=== PATIENT | female | born 1955 | race Hispanic/Latino ===

== ENCOUNTER 2016-05-18 06:42 | Outpatient (CLI) | payer OTHER ==
[2016-05-18 07:47] LABS: #Basophils 0.1 thou/uL (0.0-0.2); #Eosinphils 0.5 thou/uL (0.0-0.7); #Lymphocytes 2.3 thou/uL (1.20-3.40); #Monocytes 0.9 thou/uL (0.11-0.59); #Neutrophils 3.8 thou/uL (1.40-6.50); %Basophils 1.1 % (0.0-1.0); %Eosinophils 6.4 % (0.0-10.0); %Monocytes 11.6 % (0.0-10.0); Hematocrit 44.5 % (36.0-47.0); Mean Platelet Volume 8.1 fL (7.4-10.4); Red Blood Cell (RBC) Count 4.47 mill/uL (4.20-5.40); White Blood Cell (WBC) Count 7.5 thou/uL (4.8-10.8)
[2016-05-18 08:25] LABS: ALT (SGPT) 20 U/L (0-55); AST (SGOT) 19 U/L (5-34); Alkaline Phosphatase 64 U/L (40-150); Anion Gap 13 mmol/L (10-20); BUN (Urea Nitrogen) 18 mg/dL (9.8-20.1); Bilirubin, Total 0.3 mg/dL (0.2-1.2); Calc. Creatinine Clearance 0 mL/min (70-130); Calcium 9.4 mg/dL (7.8-10.44); Carbon Dioxide 23 mmol/L (22-29); Chloride 108 mmol/L (98-107); Estimated GFR-MDRD 68; Globulin 2.7 g/dL (2.4-3.5); Protein, Total 6.8 g/dL (6.0-8.3)
== END 2016-05-18 06:43 | disposition home or self-care (01) ==
LOC: BURLAB 06:42
PROVIDERS: ATTEND Internal Medicine Rheumatology
DX: M06.061 Rheumatoid arthritis without rheumatoid factor, right knee (principal); Z79.899 Other long term (current) drug therapy
CPT/HCPCS: 36415; 80053; 85025; 85652; 86140

== ENCOUNTER 2016-08-03 06:30 | Outpatient (CLI) | payer OTHER ==
[2016-08-03 08:37] LABS: Cardiac Risk 4.1 (Less than 4.5)
[2016-08-03 08:56] LABS: Free T4 (Free Thyroxine) 1.16 ng/dL (0.70-1.48); Thyroid Stimulating Hormone 1.5345 uIU/mL (0.35-4.94)
== END 2016-08-03 06:31 | disposition home or self-care (01) ==
LOC: BURLAB 06:30
PROVIDERS: ATTEND Internal Medicine
DX: E78.5 Hyperlipidemia, unspecified (principal); E03.9 Hypothyroidism, unspecified; R79.89 Other specified abnormal findings of blood chemistry
CPT/HCPCS: 36415; 80061; 83036; 84439; 84443

== ENCOUNTER 2016-09-21 06:46 | Outpatient (CLI) | payer OTHER ==
[2016-09-21 07:18] LABS: Bilirubin Negative (Negative); Blood, Urine Negative (Negative); Clarity Clear (Clear); Glucose, Urine (Dipstick) Negative (Negative); Leukocyte Negative (Negative); Nitrite Negative (Negative); Protein, Urine (Dipstick) Negative (Neg-Trace); Urobilinogen 0.2 mg/dL (0.2-1.0)
[2016-09-21 07:29] LABS: Bacteria/HPF None Seen HPF (None Seen); RBC/HPF None Seen HPF (0-3); Squamous Epithelial 0-3 HPF (0-3); WBC/HPF None Seen HPF (0-3)
[2016-09-21 07:42] LABS: #Basophils 0.1 thou/uL (0.0-0.2); #Eosinphils 0.6 thou/uL (0.0-0.7); #Lymphocytes 2.3 thou/uL (1.20-3.40); #Monocytes 0.8 thou/uL (0.11-0.59); #Neutrophils 5.3 thou/uL (1.40-6.50); %Basophils 1.2 % (0.0-1.0); %Lymphocytes 25.1 % (21.0-51.0); %Neutrophils 57.8 % (42.0-75.0); Hemoglobin 14.1 g/dL (12.0-16.0); Mean Corpuscular HGB CONC 32.7 g/dL (32.0-36.0); Mean Corpuscular Hemoglobin 32.7 pg (27.0-31.0); Mean Corpuscular Volume 99.8 fl (81.0-99.0); Platelet Count 245 thou/uL (130-400); Red Blood Cell (RBC) Count 4.31 mill/uL (4.20-5.40); White Blood Cell (WBC) Count 9.1 thou/uL (4.8-10.8)
[2016-09-21 07:58] LABS: Hemoglobin A1c 5.1 % (4.0-6.0)
[2016-09-21 08:03] LABS: ALT (SGPT) 43 U/L (8-55); AST (SGOT) 33 U/L (5-34); Albumin 4.3 g/dL (3.5-5.0); Alkaline Phosphatase 67 U/L (40-150); Anion Gap 19 mmol/L (10-20); BUN (Urea Nitrogen) 17 mg/dL (9.8-20.1); Bilirubin, Total 0.6 mg/dL (0.2-1.2); Calc. Creatinine Clearance 0 mL/min (70-130); Calcium 9.8 mg/dL (7.8-10.44); Carbon Dioxide 21 mmol/L (22-29); Cardiac Risk 4.6 (Less than 4.5); Chloride 105 mmol/L (98-107); Cholesterol 237 mg/dl (< 200 Desired); Estimated GFR-MDRD 57; Globulin 2.9 g/dL (2.4-3.5); Glucose 103 mg/dL (70-105); HDL Cholesterol 52 mg/dL (>60 Neg Risk); LDL Cholesterol, Calculated 160 mg/dL; Protein, Total 7.2 g/dL (6.0-8.3); Sodium 141 mmol/L (136-145); Triglycerides 125 mg/dL (Less than 150)
[2016-09-21 08:25] LABS: Free T4 (Free Thyroxine) 1.29 ng/dL (0.70-1.48); Thyroid Stimulating Hormone 1.2444 uIU/mL (0.35-4.94); Vitamin D, 25 Hydroxy 78.3 ng/ml (> 30.0)
[2016-09-21 18:03] LABS: Iron 93 ug/dL (50-170)
[2016-09-21 18:17] LABS: Hep C IgG Ab Non-Reactive (NonReactive); Hep C Index 0.11 S/CO (0-0.79)
== END 2016-09-21 06:47 | disposition home or self-care (01) ==
LOC: BURLAB 06:46
PROVIDERS: ATTEND Internal Medicine
DX: Z00.00 Encounter for general adult medical examination without abnormal findings (principal)
CPT/HCPCS: 36415; 80053; 80061; 81001; 82306; 83036; 83540; 84439; 84443; 85025; 86803

== ENCOUNTER 2016-11-03 17:40 | Outpatient (CLI) | payer OTHER ==
[2016-11-03 18:01] LABS: #Basophils 0.1 thou/uL (0.0-0.2); #Eosinphils 0.3 thou/uL (0.0-0.7); #Lymphocytes 2.3 thou/uL (1.20-3.40); #Monocytes 1.1 thou/uL (0.11-0.59); %Basophils 0.8 % (0.0-1.0); %Eosinophils 2.7 % (0.0-10.0); %Lymphocytes 19.2 % (21.0-51.0); %Monocytes 9.2 % (0.0-10.0); %Neutrophils 68.1 % (42.0-75.0); Hemoglobin 13.8 g/dL (12.0-16.0); Mean Corpuscular HGB CONC 33.2 g/dL (32.0-36.0); Mean Corpuscular Hemoglobin 32.6 pg (27.0-31.0); Mean Corpuscular Volume 98.1 fl (81.0-99.0); Mean Platelet Volume 8.2 fL (7.4-10.4); Platelet Count 235 thou/uL (130-400); RBC Distribution Width 12.8 % (11.5-14.5); Red Blood Cell (RBC) Count 4.23 mill/uL (4.20-5.40); White Blood Cell (WBC) Count 11.8 thou/uL (4.8-10.8)
[2016-11-03 18:18] LABS: ALT (SGPT) 23 U/L (8-55); AST (SGOT) 21 U/L (5-34); Albumin 4.2 g/dL (3.5-5.0); Alkaline Phosphatase 65 U/L (40-150); Anion Gap 14 mmol/L (10-20); BUN (Urea Nitrogen) 19 mg/dL (9.8-20.1); Bilirubin, Total 0.4 mg/dL (0.2-1.2); Calc. Creatinine Clearance 0 mL/min (70-130); Calcium 9.7 mg/dL (7.8-10.44); Carbon Dioxide 23 mmol/L (22-29); Chloride 107 mmol/L (98-107); Estimated GFR-MDRD 72; Glucose 104 mg/dL (70-105); Potassium 3.6 mmol/L (3.5-5.1); Protein, Total 7.2 g/dL (6.0-8.3); Sodium 140 mmol/L (136-145)
[2016-11-04 16:01] LABS: CRP (Inflammatory) Less than 0.50 mg/dL (= or < 0.5)
== END 2016-11-03 17:41 | disposition home or self-care (01) ==
LOC: BURLAB 17:40
PROVIDERS: ATTEND Internal Medicine Rheumatology
DX: M06.09 Rheumatoid arthritis without rheumatoid factor, multiple sites (principal)
CPT/HCPCS: 36415; 80053; 85025; 85652; 86140

== ENCOUNTER 2020-04-20 05:13 | Inpatient (IN) | payer OTHER ==
[2020-04-20] MEDS ORDERED: Acetaminophen 500 MG TAB ONE (05:48)
[2020-04-20] MEDS ORDERED: Ondansetron PF 4 MG/2 ML Vial ONE (05:48)
[2020-04-20 06:23] LABS: ALT (SGPT) 20 U/L (8-55); AST (SGOT) 22 U/L (5-34); Albumin 3.8 g/dL (3.4-4.8); Alkaline Phosphatase 52 U/L (40-110); Anion Gap 14 mmol/L (10-20); BUN (Urea Nitrogen) 12 mg/dL (9.8-20.1); Bilirubin, Total 0.7 mg/dL (0.2-1.2); Calc. Creatinine Clearance 0 mL/min (70-130); Calcium 9.3 mg/dL (7.8-10.44); Carbon Dioxide 22 mmol/L (23-31); Chloride 107 mmol/L (98-107); Globulin 2.6 g/dL (2.4-3.5); Glucose 142 mg/dL (80-115); Potassium 3.1 mmol/L (3.5-5.1); Protein, Total 6.4 g/dL (6.0-8.3); Sodium 140 mmol/L (136-145)
[2020-04-20 06:35] LABS: Band 26 % (5-11); Hemoglobin 13.5 g/dL (12.0-16.0); Lymphocytes 6 % (21-51); MDiff Complete? YES; Mean Corpuscular HGB CONC 34.6 g/dL (32.0-36.0); Mean Corpuscular Hemoglobin 33.3 pg (27.0-31.0); Mean Corpuscular Volume 96.1 fL (78.0-98.0); Mean Platelet Volume 7.1 fL (7.4-10.4); Monocytes 5 % (0-10); Neutrophil 63 % (42-75); Platelet Count 195 thou/uL (130-400); Platelet Morphology Comment Appears Adequate; RBC Distribution Width 12.5 % (11.5-14.5); RBC Morphology Normal; Red Blood Cell (RBC) Count 4.05 mill/uL (4.20-5.40); Vacuoles SLIGHT; White Blood Cell (WBC) Count 12.1 thou/uL (4.8-10.8)
[2020-04-20] MEDS ORDERED: Sodium Chloride 0.9% 100 ML ONE (06:44)
[2020-04-20] MEDS ORDERED: Aspirin Chewable 81 MG TAB ONE (06:44)
[2020-04-20] MEDS ORDERED: cefTRIAXone\\ROCEPHIN 2 GM VIAL ONE (06:44)
[2020-04-20] MEDS ORDERED: Potassium Chloride 20 MEQ TAB ONE (06:44)
[2020-04-20 07:22] LABS: Bilirubin Negative (Negative); Blood, Urine Negative (Negative); Clarity Clear (Clear); Glucose, Urine (Dipstick) Negative (Negative); Ketone, Urine Negative (Negative); Leukocyte Negative (Negative); Nitrite Negative (Negative); Protein, Urine (Dipstick) Negative (Neg-Trace); Urobilinogen 0.2 mg/dL (Less than 2); pH, Urine 5.5 (5.0-9.0)
--- NOTE | 2020-04-20 07:32 | RAD ---
Chest one view HISTORY: Dyspnea. FINDINGS: Cardiac silhouette and pulmonary vasculature are unremarkable. Mediastinum is midline. Ill-defined parenchymal infiltrate with air bronchograms projects over the right posterior lung base. Left lung is clear. No evidence of pneumothorax. Small metallic densities projecting over the upper midline mediastinum favored to represent extrinsic artifact. IMPRESSION : Right lower lobe pneumonia.
[2020-04-20] MEDS ORDERED: Dexamethasone 4 mg/ml Vial ONE (07:38)
[2020-04-20] MEDS ORDERED: Albuterol 200 PUFF (6.7GM INHALER) ONE (07:38)
[2020-04-20] MEDS ORDERED: Azithromycin 500 MG VIAL ONE (07:38)
[2020-04-20 08:54] LABS: Lactic Acid 1.2 mmol/L (0.5-2.2)
[2020-04-20 09:15] LABS: SARS-CoV-2 NAA Rapid Test Not Detected (NotDetected)
[2020-04-20] MEDS ORDERED: Albuterol 200 PUFF (6.7GM INHALER) INH PRN (11:05)
[2020-04-20] MEDS ORDERED: Ondansetron ODT 4 MG TAB PO PRN (11:05)
[2020-04-20] MEDS ORDERED: Acetaminophen 325 MG TAB PO PRN (11:06)
[2020-04-20] MEDS ORDERED: Ondansetron PF 4 MG/2 ML Vial IVP PRN (11:06)
[2020-04-20] MEDS ORDERED: traMADol HCl 50 MG TAB PO PRN (12:13)
[2020-04-20] MEDS ORDERED: tiZANidine HCl 4 MG TAB PO PRN (12:19)
[2020-04-20] MEDS ORDERED: predniSONE 10 MG TAB PO PRN (12:23)
[2020-04-20] MEDS ORDERED: SUMATRIPTAN 5 MG EA NARE PRN (12:26)
[2020-04-20] MEDS ORDERED: Diclofenac Sodium [Voltaren] 100 GM Gel..Gram. TOP PRN (12:29)
[2020-04-20] MEDS ORDERED: ABATACEPT 250 MG SC SCH (12:30)
[2020-04-20] MEDS ORDERED: Fluticasone Propionate Nasal Spray 16 gm Bottle NASAL PRN (12:33)
[2020-04-20] MEDS ORDERED: Estradiol [Estrace 0.01% Vaginal Cream] 42.5 GM Tube VAG SCH (12:45)
[2020-04-20] MEDS: Albuterol Sulfate 2.5 mg/3 ml Neb NEB PRN ×2 (13:32→20:55)
[2020-04-20 13:40] VITALS: BMI 29.7
--- NOTE | 2020-04-20 15:36 | HP ---
CHIEF COMPLAINT: Shortness of breath. HISTORY OF PRESENT ILLNESS: This 64-year-old female with underlying history of asthma, and who is treated with immunosuppressive therapy based on her history of rheumatoid arthritis, presented to the [facility] Emergency Department early this morning with complaints of acute onset of dyspnea, abdominal cramping, nausea, loose stool, body aches, and fever; the patient reports the symptoms to have developed upon waking from sleep around 2:30 in the morning; she had been asymptomatic the day prior. In the emergency department, she was tested for COVID and influenza, which both returned negative. She did have a T-max of 100.2 while in the emergency room. Chest x-ray was obtained consistent with a right lower lobe pneumonia. Lab work revealed a mild leukocytosis and initially an elevated lactic acid level. Blood and urine cultures were obtained and the patient was subsequently started empirically on Rocephin and azithromycin. She was also provided Decadron and Proventil inhaler. The patient's potassium level was low at 3.1, and thus she received 40 mEq of potassium chloride as well. The patient was subsequently admitted for further care of her pneumonia. At the time of my evaluation, she does report to be feeling better overall, but does have residual fatigue and intermittent cough. Her appetite is suppressed overall, but she does report her voiding output to be at baseline. She is in no significant pain at present and has good insight into her reason for admission. PAST MEDICAL HISTORY: Includes hypertension, rheumatoid arthritis, osteoarthritis, asthma, and hypothyroidism. PAST SURGICAL HISTORY: x2, a tendon repair to the left ankle, right knee surgery, rotator cuff repair of the left shoulder, bilateral thumb surgery, gastric sleeve, and hysterectomy. SOCIAL HISTORY: She is a nonsmoker with no drug use. Occasional social alcohol use. FAMILY HISTORY: Noncontributory. HOME MEDICATIONS: Include: 1. Singulair 10 mg at bedtime. 2. Lisinopril 20 mg daily. 3. Albuterol sulfate inhaler 2 puffs q.6 hours p.r.n. 4. Orencia 250 mg IV once a month. 5. Calcium citrate 630 mg daily. 6. Estradiol 1 application vaginally q.7 days. 7. Diclofenac sodium 100 mg topically p.r.n. 8. Levothyroxine 75 mcg daily. 9. Leflunomide 20 mg daily. 10. Advair Diskus 250/50 one puff b.i.d. 11. Triamterene/hydrochlorothiazide 75-50 mg daily. 12. Sumatriptan nasal spray p.r.n. 13. Pantoprazole 40 mg daily. 14. Prednisone 5 mg daily as needed. 15. Nasacort Allergy one spray each nostril daily as needed. 16. Tizanidine 4 mg at bedtime p.r.n. 17. Sulfasalazine 1000 mg p.o. daily. 18. Tramadol 50 mg as needed. REVIEW OF SYSTEMS: GENERAL: The patient complains of fatigue and fever. EARS, NOSE, AND THROAT: Denies sore throat, nasal drainage, or congestion. CARDIOVASCULAR: Denies chest pain or palpitations. RESPIRATORY: Complains of cough and shortness of breath. GASTROINTESTINAL: Complains of nausea and loose stool. GENITOURINARY: Denies dysuria. MUSCULOSKELETAL: Complains of chronic joint pains. DERM: Denies rash. NEUROLOGIC: Denies headache. LABORATORY DATA: White blood cell count is 12.1, hemoglobin 13.5, hematocrit 38.9, platelets 195. Sodium 140, potassium 3.1, BUN is 12, creatinine 0.90 with a GFR of 63, glucose 142. Initial lactic acid 2.4. Upon repeat check, it is 1.2. AST 22, ALT 20. Troponin 0.010. BNP less than 10. Urine was clear with no leukocyte esterase or nitrites. COVID and influenza swabs are negative. IMAGING DATA: Chest x-ray shows a right lower lobe pneumonia. PHYSICAL EXAMINATION: VITAL SIGNS: Temperature is 99.1, pulse is 80, respiratory rate is 20, oxygen is 96% on room air, and blood pressure 111/64. GENERAL: The patient is alert, oriented, in no acute distress. She is tired-appearing. HEAD, EYES, EARS, NOSE, AND THROAT: She is normocephalic and atraumatic. Pupils are equal, round, and reactive to light. Extraocular muscles are intact bilaterally. Moist mucous membranes. NECK: Supple without lymphadenopathy. RESPIRATORY: The patient has scattered crackles, but most prominent to the right lower lung field. No respiratory distress. No wheezing. CARDIOVASCULAR: Regular rate and rhythm. Normal S1 and S2. No murmurs, rubs, or gallops. ABDOMEN: Soft and nontender to palpation. No masses. EXTREMITIES: No clubbing, cyanosis, or edema. DERM: No rashes. NEUROLOGIC: Nonfocal with cranial nerves 2 through 12 grossly intact. ASSESSMENT AND PLAN: 1. Right lower lobe pneumonia, community acquired. We will resume the patient on azithromycin and Rocephin IV. She is currently afebrile and will provide antipyretics as needed and will follow up the patient's blood and urine cultures. We will repeat the patient's CBC in the morning to reassess her leukocytosis. We will provide supplemental oxygen should her O2 levels drop below 92%. 2. Hypokalemia. The patient received potassium chloride 40 mEq in the emergency department. We will repeat her metabolic panel tomorrow and reassess her potassium level. 3. Asthma. The patient is stable on room air at this time. We will resume her Advair and albuterol inhaler. 4. Hypertension. The patient is hemodynamically stable. We will resume her usual blood pressure medication. 5. Rheumatoid arthritis. The patient is on chronic immunosuppressive therapy related to this. We will resume her low-dose 5 mg prednisone while here. 6. Hypothyroidism. We will resume the patient's levothyroxine. 7. Prophylaxis. We will provide Lovenox for deep venous thrombosis prophylaxis and continue the patient's pantoprazole for gastrointestinal prophylaxis. We will also provide Florastor for as a probiotic due to antibiotic treatment. 8. Code status is full. 9. Disposition. We will plan to discharge the patient home with improvement in her current condition hopefully after her cultures have finalized. Job ID: [id number] MTDD
[2020-04-20] MEDS: Mometasone/Formoterol 200/5 60 PUFF INH SCH (18:13)
[2020-04-20] MEDS: Montelukast Sodium 10 mg Tablet PO SCH (20:54)
[2020-04-20] MEDS: Enoxaparin Sodium 30 MG/0.3 ML SYRINGE SC SCH (20:55)
[2020-04-20] MEDS ORDERED: Calcium Carbonate 500 MG ChewTAB PO PRN (21:48)
[2020-04-21 04:39] LABS: ALT (SGPT) 23 U/L (8-55); AST (SGOT) 17 U/L (5-34); Albumin 3.3 g/dL (3.4-4.8); Alkaline Phosphatase 36 U/L (40-110); Anion Gap 12 mmol/L (10-20); BUN (Urea Nitrogen) 9 mg/dL (9.8-20.1); Bilirubin, Total 0.5 mg/dL (0.2-1.2); Calc. Creatinine Clearance 85 mL/min (70-130); Calcium 8.9 mg/dL (7.8-10.44); Carbon Dioxide 22 mmol/L (23-31); Chloride 111 mmol/L (98-107); Globulin 2.4 g/dL (2.4-3.5); Glucose 126 mg/dL (80-115); Potassium 3.7 mmol/L (3.5-5.1); Protein, Total 5.7 g/dL (6.0-8.3); Sodium 141 mmol/L (136-145)
[2020-04-21 04:44] LABS: #Monocytes 1.1 thou/uL (0.11-0.59); #Neutrophils 15.2 thou/uL (1.40-6.50); %Basophils 0.3 % (0.0-1.0); %Lymphocytes 5.9 % (21.0-51.0); %Monocytes 6.1 % (0.0-10.0); %Neutrophils 87.8 % (42.0-75.0); Mean Corpuscular Hemoglobin 33.1 pg (27.0-31.0); Mean Corpuscular Volume 97.2 fL (78.0-98.0); Mean Platelet Volume 7.3 fL (7.4-10.4); Platelet Count 180 thou/uL (130-400); RBC Distribution Width 12.9 % (11.5-14.5); Red Blood Cell (RBC) Count 3.34 mill/uL (4.20-5.40); White Blood Cell (WBC) Count 17.3 thou/uL (4.8-10.8)
[2020-04-21] MEDS ORDERED: Levothyroxine Sodium 50 MCG TAB PO SCH (06:00)
[2020-04-21] MEDS: Levothyroxine Sodium 25 MCG TAB PO SCH (06:01)
[2020-04-21] MEDS: Mometasone/Formoterol 200/5 60 PUFF INH SCH ×2 (06:02→08:36)
[2020-04-21] MEDS: cefTRIAXone\\ROCEPHIN 1 GM in Sodium Chloride 0.9% 100 ML IVPB SCH (06:12)
[2020-04-21] MEDS ORDERED: Azithromycin 500 MG in Sodium Chloride 0.9% 250 ML 250 ML IVPB SCH (08:00)
[2020-04-21] MEDS: Leflunomide 10 mg Tablet PO SCH (08:37)
[2020-04-21] MEDS: Multivit, Therapeutic 1 TAB PO SCH (08:38)
[2020-04-21] MEDS: Potassium Chloride 10 MEQ TAB PO SCH (08:38)
[2020-04-21] MEDS: Triamterene/Hydrochlorothiazide 37.5 mg/25 mg Tablet PO SCH (08:38)
[2020-04-21] MEDS: sulfaSALAzine 500 MG TAB PO SCH (08:38)
[2020-04-21] MEDS: Saccharomyces boulardii 250 MG CAP PO SCH (08:39)
[2020-04-21] MEDS: predniSONE 10 MG TAB PO SCH (08:39)
[2020-04-21] MEDS: Lisinopril 20 MG TAB PO SCH (08:40)
[2020-04-21] MEDS ORDERED: Calcium Citrate 950 MG TAB PO SCH (09:00)
[2020-04-21] MEDS: Montelukast Sodium 10 mg Tablet PO SCH (20:53)
[2020-04-21] MEDS: Enoxaparin Sodium 30 MG/0.3 ML SYRINGE SC SCH (20:53)
[2020-04-21] MEDS: Azithromycin 500 MG in Sodium Chloride 0.9% 250 ML 250 ML IVPB SCH (21:57)
[2020-04-22] MEDS: Levothyroxine Sodium 25 MCG TAB PO SCH (06:04)
[2020-04-22] MEDS: Mometasone/Formoterol 200/5 60 PUFF INH SCH ×2 (06:05→18:15)
[2020-04-22] MEDS: cefTRIAXone\\ROCEPHIN 1 GM in Sodium Chloride 0.9% 100 ML IVPB SCH (06:06)
[2020-04-22 06:22] LABS: #Basophils 0.1 thou/uL (0.0-0.2); #Eosinphils 0.1 thou/uL (0.0-0.7); #Lymphocytes 2.5 thou/uL (1.20-3.40); #Monocytes 0.6 thou/uL (0.11-0.59); #Neutrophils 9.7 thou/uL (1.40-6.50); %Basophils 0.5 % (0.0-1.0); %Eosinophils 0.6 % (0.0-10.0); %Lymphocytes 19.3 % (21.0-51.0); %Monocytes 4.9 % (0.0-10.0); %Neutrophils 74.7 % (42.0-75.0); Hemoglobin 11.1 g/dL (12.0-16.0); Mean Corpuscular HGB CONC 32.8 g/dL (32.0-36.0); Mean Corpuscular Hemoglobin 32.8 pg (27.0-31.0); Mean Corpuscular Volume 99.9 fL (78.0-98.0); Platelet Count 199 thou/uL (130-400); RBC Distribution Width 13.3 % (11.5-14.5); Red Blood Cell (RBC) Count 3.39 mill/uL (4.20-5.40)
[2020-04-22 06:25] LABS: Anion Gap 13 mmol/L (10-20); BUN (Urea Nitrogen) 10 mg/dL (9.8-20.1); Calc. Creatinine Clearance 82 mL/min (70-130); Calcium 9.4 mg/dL (7.8-10.44); Carbon Dioxide 24 mmol/L (23-31); Chloride 111 mmol/L (98-107); Glucose 88 mg/dL (80-115); Sodium 144 mmol/L (136-145)
--- NOTE | 2020-04-22 07:07 | RAD ---
CHEST 2 VIEWS: Date: 04/22/2020 Comparison made with the 04/20/2020 study. The right lower lobe pneumonia is markedly improved. There is a minor residual at the moment. The lef t lung remains clear. There are no large effusions. The heart size is normal. IMPRESSION: Right lower lobe pneumonia, improving. POS: HOME
[2020-04-22] MEDS: Triamterene/Hydrochlorothiazide 37.5 mg/25 mg Tablet PO SCH (08:54)
[2020-04-22] MEDS: Leflunomide 10 mg Tablet PO SCH (08:55)
[2020-04-22] MEDS: Multivit, Therapeutic 1 TAB PO SCH (08:55)
[2020-04-22] MEDS: Potassium Chloride 10 MEQ TAB PO SCH (08:55)
[2020-04-22] MEDS: sulfaSALAzine 500 MG TAB PO SCH (08:55)
[2020-04-22] MEDS: Saccharomyces boulardii 250 MG CAP PO SCH (08:56)
[2020-04-22] MEDS: predniSONE 10 MG TAB PO SCH (08:56)
[2020-04-22] MEDS: Lisinopril 20 MG TAB PO SCH (08:59)
[2020-04-22] MEDS ORDERED: Calcium Citrate 950 MG TAB PO SCH (09:00)
[2020-04-22] MEDS ORDERED: CALCIUM CITRATE PO SCH (11:15)
[2020-04-22] MEDS ORDERED: VIT D PO SCH (11:15)
[2020-04-22 17:25] VITALS: TEMP 98
[2020-04-22] MEDS ORDERED: Estradiol [Estrace 0.01% Vaginal Cream] 42.5 GM Tube VAG SCH (21:00)
[2020-04-22] MEDS: Enoxaparin Sodium 30 MG/0.3 ML SYRINGE SC SCH (21:23)
[2020-04-22] MEDS: Montelukast Sodium 10 mg Tablet PO SCH (21:23)
[2020-04-22] MEDS: Azithromycin 500 MG in Sodium Chloride 0.9% 250 ML 250 ML IVPB SCH (21:24)
[2020-04-23 05:01] LABS: #Basophils 0.1 thou/uL (0.0-0.2); #Eosinphils 0.2 thou/uL (0.0-0.7); #Lymphocytes 2.4 thou/uL (1.20-3.40); #Monocytes 0.6 thou/uL (0.11-0.59); #Neutrophils 5.6 thou/uL (1.40-6.50); %Basophils 0.9 % (0.0-1.0); %Eosinophils 2.4 % (0.0-10.0); %Lymphocytes 27.2 % (21.0-51.0); %Monocytes 6.4 % (0.0-10.0); Hemoglobin 12.6 g/dL (12.0-16.0); Mean Corpuscular HGB CONC 32.2 g/dL (32.0-36.0); Mean Corpuscular Hemoglobin 32.3 pg (27.0-31.0); Mean Platelet Volume 7.2 fL (7.4-10.4); Platelet Count 231 thou/uL (130-400); RBC Distribution Width 13.1 % (11.5-14.5); Red Blood Cell (RBC) Count 3.91 mill/uL (4.20-5.40); White Blood Cell (WBC) Count 8.9 thou/uL (4.8-10.8)
[2020-04-23 05:18] LABS: Anion Gap 14 mmol/L (10-20); BUN (Urea Nitrogen) 10 mg/dL (9.8-20.1); Calc. Creatinine Clearance 80 mL/min (70-130); Calcium 9.3 mg/dL (7.8-10.44); Carbon Dioxide 26 mmol/L (23-31); Chloride 107 mmol/L (98-107); Glucose 89 mg/dL (80-115); Sodium 143 mmol/L (136-145)
[2020-04-23] MEDS: Levothyroxine Sodium 25 MCG TAB PO SCH (06:32)
[2020-04-23] MEDS: cefTRIAXone\\ROCEPHIN 1 GM in Sodium Chloride 0.9% 100 ML IVPB SCH (06:33)
--- NOTE | 2020-04-23 07:00 | DIS ---
DATE OF ADMISSION: 04/20/2020 DATE OF DISCHARGE: 04/23/2020 ADMISSION DIAGNOSES: 1. Right lower lobe pneumonia, community acquired. 2. Hypokalemia. SECONDARY DIAGNOSES: 1. Asthma. 2. Hypertension. 3. Rheumatoid arthritis. 4. Hypothyroidism. PROCEDURES: 1. On 04/20/2020, chest x-ray shows right lower lobe pneumonia. 2. On 04/22/2020, shows right lower lobe pneumonia, improving. HOSPITAL COURSE: 64-year-old female with underlying history of asthma and rheumatoid arthritis for which she is on chronic immunosuppressive therapy, who presented acutely to the [facility] Emergency Department with complaints of fever, body aches, mild upper respiratory symptoms with shortness of breath, and loose stools that awoke her from sleep overnight. She was promptly tested for COVID and influenza, which both were negative. Her chest x-ray confirmed right lower lobe pneumonia, and lab work revealed leukocytosis with left shift; the patient initially had an elevated lactic acid level as well. Blood and urine cultures were obtained, and she was started empirically on IV azithromycin and Rocephin. In addition to this, the patient's potassium was low at 3.1 and was effectively repleted. She was subsequently admitted for further treatment of her pneumonia. The patient's labs were trended during her stay. Her potassium remains within normal limits via supplementation. Her leukocytosis resolved by day of discharge. Her blood and urine cultures are returned to be negative beyond 48 hours. She has remained afebrile and reports her respiratory status to be back near her baseline at this time. She is amenable to discharge home to complete a course of oral antibiotics and reports to be feeling much better than upon arrival. DISPOSITION: The patient will discharge home and has been advised to follow up with her primary care provider, Dr. Rondon in 1 week. DISCHARGE MEDICATIONS: There are 3 new medications which include: 1. Potassium chloride 10 mEq once daily. 2. Cephalexin 500 mg p.o. b.i.d. x3 days. 3. Azithromycin 250 mg p.o. daily x2 days. The patient has been advised to withhold her immunosuppressive medications until antibiotics have been completed, and she is completely asymptomatic. All of her usual other medications shall be resumed. Total time spent in discharge of this patient greater than 30 minutes. Job ID: [id number]
[2020-04-23] MEDS: Mometasone/Formoterol 200/5 60 PUFF INH SCH (08:25)
[2020-04-23] MEDS: Leflunomide 10 mg Tablet PO SCH (08:27)
[2020-04-23] MEDS: Triamterene/Hydrochlorothiazide 37.5 mg/25 mg Tablet PO SCH (08:29)
[2020-04-23] MEDS: Potassium Chloride 10 MEQ TAB PO SCH (08:30)
[2020-04-23] MEDS: Lisinopril 20 MG TAB PO SCH (08:30)
[2020-04-23] MEDS: Saccharomyces boulardii 250 MG CAP PO SCH (08:30)
[2020-04-23] MEDS: Multivit, Therapeutic 1 TAB PO SCH (08:30)
[2020-04-23] MEDS: predniSONE 10 MG TAB PO SCH (08:31)
[2020-04-23 08:39] VITALS: BP 133/76
[2020-04-23] MEDS ORDERED: CALCIUM CITRATE PO SCH (09:00)
[2020-04-23] MEDS ORDERED: VIT D PO SCH (09:00)
[2020-05-05] MEDS ORDERED: ABATACEPT 250 MG SC SCH (09:00)
== END 2020-04-23 10:48 | disposition home or self-care (01) | DRG 195 ==
LOC: BURERS 05:13 → BURMED 07:38
PROVIDERS: ADMIT Family Medicine; ATTEND Family Medicine
DX: J18.9 Pneumonia, unspecified organism (principal); E03.9 Hypothyroidism, unspecified; E87.6 Hypokalemia; M06.9 Rheumatoid arthritis, unspecified; M19.90 Unspecified osteoarthritis, unspecified site; I10 Essential (primary) hypertension; J45.909 Unspecified asthma, uncomplicated; Z90.710 Acquired absence of both cervix and uterus; Z98.84 Bariatric surgery status; Z98.890 Other specified postprocedural states; Z88.1 Allergy status to other antibiotic agents; Z88.0 Allergy status to penicillin; Z88.8 Allergy status to other drugs, medicaments and biological substances; Z79.51 Long term (current) use of inhaled steroids; Z79.899 Other long term (current) drug therapy; Z79.890 Hormone replacement therapy; Z20.828 Contact with and (suspected) exposure to other viral communicable diseases
CPT/HCPCS: 0240U; 36415; 71045; 71046; 80048; 80053; 81003; 83605; 83880; 84484; 85025; 87040; 87086; 93005; 94640; 94664; 96365; 96367; 96375; J0456; J0696; J1100; J1650; J2405; J3490; J7050; J7512; J7611

== ENCOUNTER 2020-05-09 03:22 | Emergency (ER) | payer OTHER ==
[2020-05-09 03:55] LABS: Bilirubin Negative (Negative); Blood, Urine Negative (Negative); Clarity Clear (Clear); Glucose, Urine (Dipstick) Negative (Negative); Ketone, Urine Negative (Negative); Leukocyte Negative (Negative); Nitrite Negative (Negative); Protein, Urine (Dipstick) Negative (Neg-Trace); Specific Gravity, Urine 1.015 (1.005-1.030); Urobilinogen 0.2 mg/dL (Less than 2); pH, Urine 7.5 (5.0-9.0)
[2020-05-09] MEDS ORDERED: Morphine 4 MG/ML VIAL ONE ×3 (04:01→04:52)
[2020-05-09 04:04] LABS: #Basophils 0.1 thou/uL (0.0-0.2); #Eosinphils 0.4 thou/uL (0.0-0.7); #Lymphocytes 2.4 thou/uL (1.20-3.40); #Monocytes 0.7 thou/uL (0.11-0.59); %Basophils 1.1 % (0.0-1.0); %Eosinophils 6.5 % (0.0-10.0); %Monocytes 10.4 % (0.0-10.0); Hemoglobin 13.3 g/dL (12.0-16.0); Mean Corpuscular HGB CONC 32.1 g/dL (32.0-36.0); Mean Corpuscular Volume 99.7 fL (78.0-98.0); Mean Platelet Volume 7.2 fL (7.4-10.4); Platelet Count 224 thou/uL (130-400); RBC Distribution Width 12.6 % (11.5-14.5); Red Blood Cell (RBC) Count 4.15 mill/uL (4.20-5.40); White Blood Cell (WBC) Count 6.6 thou/uL (4.8-10.8)
[2020-05-09] MEDS ORDERED: Ondansetron PF 4 MG/2 ML Vial ONE (04:10)
[2020-05-09 04:15] LABS: ALT (SGPT) 15 U/L (8-55); AST (SGOT) 17 U/L (5-34); Albumin 4.1 g/dL (3.4-4.8); Alkaline Phosphatase 74 U/L (40-110); Anion Gap 16 mmol/L (10-20); BUN (Urea Nitrogen) 14 mg/dL (9.8-20.1); Bilirubin, Total 0.2 mg/dL (0.2-1.2); Calc. Creatinine Clearance 0 mL/min (70-130); Calcium 9.3 mg/dL (7.8-10.44); Carbon Dioxide 25 mmol/L (23-31); Chloride 105 mmol/L (98-107); Globulin 2.8 g/dL (2.4-3.5); Glucose 110 mg/dL (80-115); Lipase 43 U/L (8-78); Potassium 3.6 mmol/L (3.5-5.1); Protein, Total 6.9 g/dL (6.0-8.3); Sodium 142 mmol/L (136-145)
--- NOTE | 2020-05-09 10:01 | CT ---
PRELIMINARY REPORT/[facility]/EMERGENCY AFTER HOURS PROCEDURE: Focal groundglass opacity within the right lower lobe measuring 1.0 cm which is nonspecific but focal infectious or inflammatory process cannot be excluded. According to the 2017 Fleischner criteria, CT at 6-12 months to confirm persistence, then CT every 2 years until 5 years is recommended. Addendum electronically signed by Benita Boles MD on May 09, 2020 4:41:10 AM [employer] EXAM: CT Abdomen and Pelvis Without Intravenous Contrast CLINICAL HISTORY: LT FLANK PAIN X4DAYS, PT STATES SHE HAS A HX OF KIDNEY STONES, ER PT TECHNIQUE: Axial computed tomography images of the abdomen and pelvis without intravenous contrast. CONTRAST: None. COMPARISON: None provided. FINDINGS: LUNG BASES: Focal groundglass opacity within the right lower lobe measuring 1.0 cm which is nonspecif ic. LIVER: Unremarkable. GALLBLADDER AND BILE DUCTS: Unremarkable. No calcified stone. No ductal dilation. PANCREAS: Unremarkable. SPLEEN: Unremarkable. ADRENAL GLANDS: Unremarkable. KIDNEYS, URETERS, AND BLADDER: Minimal bilateral perinephric fat stranding which is nonspecific. No nephrolithiasis or hydronephrosis. STOMACH AND BOWEL: Status post gastric surgery. Colonic diverticulosis without evidence of diverticul itis. No bowel obstruction. APPENDIX: Normal appendix. PERITONEUM: No free fluid. No free air. LYMPH NODES: No lymphadenopathy. REPRODUCTIVE: Status post hysterectomy. VASCULATURE: No aortic aneurysm. ABDOMINAL WALL AND SOFT TISSUES: Unremarkable. BONES: Mild degenerative changes of the spine. IMPRESSION: Minimal bilateral perinephric fat stranding which is nonspecific. No nephrolithiasis or hydronephrosis. Status post gastric surgery. Colonic diverticulosis without evidence of diverticuli tis. No bowel obstruction. ELECTRONICALLY SIGNED BY: Benita Boles MD May 09, 2020 4:21:27 AM [employer] FINAL REPORT CT ABDOMEN AND PELVIS WITHOUT CONTRAST: DATE: 05/09/2020. HISTORY: A noncontrast CT was done for evaluation of bilateral flank pain with nausea. There is a history of renal stones. COMPARISON: Comparison is made with the prior CT exam of 09/22/2009. FINDINGS: The lung bases are generally clear. There is a very small 1 cm ground-glass density in the right low er lobe on slice 6 that is nonspecific. This could be due to infection, new or old, neoplasm, or oth er benign process. General recommendations would be to do a followup CT in 6-12 months. I do not se e it on the prior CT, but that prior exam did not scan up quite the side. The liver, spleen, pancreas, adrenal glands, and abdominal aorta appear normal within the limitations of a noncontrast study. 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 Previously, a tiny calculus was s een in its lower pole, but not today. There is no hydronephrosis in either kidney. Both ureters are normal in size. It is difficult to accurately assess the ureters for tiny calculi because this evan ent has numerous phleboliths along the general course of each ureter. Given no hydronephrosis and no predominance of pain on one side versus the other, all of the calcifications I see are more likely p hleboliths than ureteral calculi. There is a moderate amount of fecal material in the colon. There is no sign of obstruction or inflam matory change. Diverticulosis without diverticulitis is seen. There is no free air or free fluid. P rior gastric surgery is suggested. CT of the pelvis shows no pelvic masses, fluid collections, or inflammatory changes. IMPRESSION: 1. No definite renal or ureteral calculi. See proviso above about phleboliths. 2. Mild constipation. 3. A 1 cm ground-glass density in the right lower lobe. Consider followup within 1 year. See above . Report in agreement with preliminary reading by [facility]. POS: HOME
== END 2020-05-09 05:02 | disposition home or self-care (01) ==
LOC: BURERS 03:22
DX: R10.9 Unspecified abdominal pain (principal); Z79.899 Other long term (current) drug therapy; Z79.52 Long term (current) use of systemic steroids; I10 Essential (primary) hypertension; M06.9 Rheumatoid arthritis, unspecified; M19.90 Unspecified osteoarthritis, unspecified site; J45.909 Unspecified asthma, uncomplicated; E03.9 Hypothyroidism, unspecified
CPT/HCPCS: 74176; 80053; 81003; 83690; 85025; 96374; 96375; 96376; J2270; J2405

== ENCOUNTER 2022-09-23 16:35 | Emergency (ER) | payer MEDICARE, OTHER ==
[2022-09-23] MEDS ORDERED: Morphine 4 MG/ML VIAL ONE (16:49)
[2022-09-23] MEDS ORDERED: methylPREDNISolone Sod Succ/PF 125 MG/2 ML VIAL ONE (16:49)
== END 2022-09-23 17:28 | disposition home or self-care (01) ==
LOC: BURERS 16:35
DX: M54.16 Radiculopathy, lumbar region (principal); I10 Essential (primary) hypertension; J45.909 Unspecified asthma, uncomplicated; E03.9 Hypothyroidism, unspecified
CPT/HCPCS: 96372; 99283; J2270; J2930

== ENCOUNTER 2022-12-19 09:12 | Outpatient (CLI) | payer MEDICARE ==
[2022-12-19 09:34] LABS: Bilirubin Small (Negative); Blood, Urine Negative (Negative); Clarity Clear (Clear); Glucose, Urine (Dipstick) Negative (Negative); Ketone, Urine Negative (Negative); Leukocyte Negative (Negative); Nitrite Negative (Negative); Protein, Urine (Dipstick) Trace mg/dL (Neg-Trace); Specific Gravity, Urine 1.025 (1.005-1.030); Urobilinogen 0.2 mg/dL (Less than 2); pH, Urine 5.5 (5.0-9.0)
[2022-12-19 09:41] LABS: Mucous/LPF 1+ LPF (<2+); RBC/HPF None Seen HPF (0-3); Squamous Epithelial 0-3 HPF (0-3); WBC/HPF None Seen HPF (0-3)
[2022-12-19 09:42] LABS: Bacteria/HPF Rare-Few HPF (None Seen)
[2022-12-19 11:55] LABS: #Eosinphils 0.3 thou/uL (0.0-0.7); #Lymphocytes 1.4 thou/uL (1.20-3.40); #Monocytes 0.4 thou/uL (0.11-0.59); #Neutrophils 2.6 thou/uL (1.40-6.50); %Basophils 0.6 % (0.0-1.0); %Eosinophils 6.2 % (0.0-10.0); %Lymphocytes 28.9 % (21.0-51.0); %Monocytes 8.8 % (0.0-10.0); %Neutrophils 55.5 % (42.0-75.0); Hematocrit 40.4 % (36.0-47.0); Hemoglobin 12.9 g/dL (12.0-16.0); Mean Corpuscular HGB CONC 31.9 g/dL (32.0-36.0); Mean Corpuscular Hemoglobin 30.5 pg (27.0-31.0); Mean Corpuscular Volume 95.6 fl (78.0-98.0); Mean Platelet Volume 6.5 fL (7.4-10.4); Platelet Count 238 10x3/uL (130-400); RBC Distribution Width 13.2 % (11.5-14.5); Red Blood Cell (RBC) Count 4.23 mill/uL (4.20-5.40); White Blood Cell (WBC) Count 4.7 10x3/uL (4.8-10.8)
[2022-12-19 12:16] LABS: Hemoglobin A1c 4.9 % (4.0-6.0)
[2022-12-19 12:44] LABS: Free T4 (Free Thyroxine) 1.21 ng/dL (0.70-1.48)
[2022-12-19 13:57] LABS: ALT (SGPT) 18 U/L (8-55); AST (SGOT) 20 U/L (5-34); Albumin 4.2 g/dL (3.4-4.8); Alkaline Phosphatase 67 U/L (40-110); Anion Gap 15 mmol/L (10-20); BUN (Urea Nitrogen) 11 mg/dL (9.8-20.1); Calc. Creatinine Clearance 0 mL/min (70-130); Calcium 10.2 mg/dL (7.8-10.44); Carbon Dioxide 27 mmol/L (23-31); Cardiac Risk 4.1 (Less than 4.5); Chloride 106 mmol/L (98-107); Cholesterol 270 mg/dl (< 200 Desired); Estimated GFR 84; Globulin 2.9 g/dL (2.4-3.5); Glucose 111 mg/dL (80-115); HDL Cholesterol 66 mg/dL (>60 Neg Risk); LDL Cholesterol, Calculated 184 mg/dL; Potassium 3.6 mmol/L (3.5-5.1); Protein, Total 7.1 g/dL (5.8-8.1); Sodium 144 mmol/L (136-145); Triglycerides 100 mg/dL (Less than 150)
[2022-12-19 14:06] LABS: Bilirubin, Total 0.5 mg/dL (0.2-1.2)
== END 2022-12-19 09:13 | disposition home or self-care (01) ==
LOC: BURRAD 09:12
PROVIDERS: ATTEND Neurological Surgery
DX: M54.16 Radiculopathy, lumbar region (principal); E03.9 Hypothyroidism, unspecified; I10 Essential (primary) hypertension; R79.89 Other specified abnormal findings of blood chemistry; Z98.890 Other specified postprocedural states
CPT/HCPCS: 36415; 72100; 80053; 80061; 81001; 83036; 84439; 84443; 85025